=== PATIENT | female | born 1990 | race Caucasian/White ===

== ENCOUNTER 2016-12-31 20:58 | Outpatient (CLI) | payer OTHER ==
[2016-12-31 21:18] VITALS: BMI 23.3
== END 2016-12-31 22:06 | disposition home or self-care (01) ==
LOC: FBCOUT 20:58 → FBC 20:58 → FBCOUT 22:06
PROVIDERS: ATTEND Advanced Practice Midwife
DX: O36.8190 Decreased fetal movements, unspecified trimester, not applicable or unspecified (principal); Z3A.00 Weeks of gestation of pregnancy not specified; Z34.83 Encounter for supervision of other normal pregnancy, third trimester
CPT/HCPCS: 76819; 59025; G0463

== ENCOUNTER 2017-01-02 17:09 | Outpatient (CLI) | payer OTHER ==
[2017-01-02 17:40] VITALS: BMI 24.5
--- NOTE | 2017-01-02 18:36 | US ---
BIOPHYSICAL PROFILE HISTORY: Decreased motion. Transabdominal obstetric sonography performed, focused on physical profile results. COMPARISON: 01/01/2017, 01/01/2016 FINDINGS: BIOPHYSICAL PROFILE SCORE: 8/8, with criteria met for breathing movements, motion, tone, and amniotic fluid volume. PRESENTATION: Cephalic. NINO: 10.4 CARDIAC ACTIVITY: Present, with a rate of 138 bpm. IMPRESSION: 1. Biophysical profile score 8/8. 2. Single live intrauterine gestation in cephalic orientation. 3. Normal NINO, 10.4 cm. Findings relayed to the [facility] clinical service on 01/02/2017 at 1832 hours.
== END 2017-01-02 18:36 | disposition home or self-care (01) ==
LOC: FBCOUT 17:09 → FBC 17:11 → FBCOUT 18:36
PROVIDERS: ATTEND Registered Nurse
DX: O36.8190 Decreased fetal movements, unspecified trimester, not applicable or unspecified (principal); Z3A.00 Weeks of gestation of pregnancy not specified
CPT/HCPCS: 76818; G0463

== ENCOUNTER 2017-01-04 16:10 | Outpatient (CLI) | payer OTHER ==
[2017-01-04 16:52] VITALS: BMI 23.8
== END 2017-01-04 17:38 | disposition home or self-care (01) ==
LOC: FBCOUT 16:10 → FBC 16:11 → FBCOUT 17:38
PROVIDERS: ATTEND Advanced Practice Midwife
DX: O36.8190 Decreased fetal movements, unspecified trimester, not applicable or unspecified (principal); Z3A.00 Weeks of gestation of pregnancy not specified